=== PATIENT | female | born 1965 | race Caucasian/White ===

== ENCOUNTER → 2023-08-11 | Outpatient (CLI) | payer BC ==
[2023-08-11 18:04] LABS: Basophils # (A) 0.02 X 10*3/uL (0.00-0.10); Basophils % (A) 0.3 %; Eosinophils # (A) 0.21 X 10*3/uL (0.04-0.35); Eosinophils % (A) 3.2 %; HGB 12.7 g/dL (12.0-15.0); Lymphocytes # (A) 1.53 X 10*3/uL (0.90-5.00); Lymphocytes % (A) 23.4 %; MCH 29.1 pg (27.0-32.0); MCHC 31.8 g/dL (32.0-37.0); MCV 91.5 FL (80.0-97.0); Mean Platelet Volume 11.2 FL (9.5-12.2); Monocytes # (A) 0.38 X 10*3/uL (0.20-1.00); Monocytes % (A) 5.8 %; NRBC Per 100 WBC 0 X 10*3/uL (0.00-0.01); Neutrophils # (A) 4.39 X 10*3/uL (1.80-7.70); Platelet Count 233 X 10*3/uL (140-440); RBC 4.37 X 10*6/uL (4.10-5.20); RDW 13.4 % (11.5-14.5); WBC 6.55 X 10*3/uL (4.50-10.00)
[2023-08-11 21:20] LABS: % Iron Saturation 14.88 (12.00-45.00); ALT 65 U/L (8-44); AST 34 U/L (13-35); Alkaline Phosphatase 65 U/L (41-126); BUN/Creat Ratio 19.18 Ratio (12.00-20.00); Blood Urea Nitrogen 21.1 mg/dL (9.0-27.0); Calcium 10.5 mg/dL (8.7-10.3); Carbon Dioxide 22.5 mmol/L (21.6-31.8); Chloride 105 mmol/L (96-109); Ferritin 23.2 ng/mL (10.0-291.0); Globulin 2.5 g/dL (1.6-3.3); Glucose 161 mg/dL (70-110); Iron 90 UG/DL (50-170); Potassium 4.9 mmol/L (3.5-5.5); Sodium 141 mmol/L (135-145); Total Iron Binding Capacity 605 UG/DL (228-460); Total Protein 7.5 g/dL (6.2-8.2)
[2023-08-11 21:23] LABS: Albumin 5.1 g/dL (3.8-4.9); Protein, Total 7.6 g/dL (6.2-8.2)
[2023-08-11 21:57] LABS: Ceruloplasmin 31.5 mg/dL (20.0-60.0)
[2023-08-11 22:51] LABS: Hepatitis B Surface Antigen Nonreactive; Hepatitis C IgG Antibody Nonreactive
[2023-08-12 13:38] LABS: Smooth Muscle Antibody 3 UNITS (<20)
[2023-08-12 16:09] LABS: Gamma Globulin 0.84 g/dL (0.70-1.50)
== END | disposition home or self-care (01) ==
LOC: LABWHC1 13:48
PROVIDERS: ATTEND Nurse Practitioner Family
DX: R74.01 Elevation of levels of liver transaminase levels (principal)
CPT/HCPCS: 36415; 80053; 81596; 82103; 82390; 82728; 83516; 83540; 83550; 84165; 85025; 86038; 86803; 87340